=== PATIENT | female | born 1945 | race Caucasian/White ===

== ENCOUNTER → 2016-11-28 | Outpatient (CLI) | payer OTHER | LOC: MMPC 11:11 | PROVIDERS: ATTEND Nurse Practitioner Family | DX: Z01.419 Encounter for gynecological examination (general) (routine) without abnormal findings (principal); I10 Essential (primary) hypertension; E78.5 Hyperlipidemia, unspecified; J44.9 Chronic obstructive pulmonary disease, unspecified; K21.9 Gastro-esophageal reflux disease without esophagitis | CPT/HCPCS: G0101; G0438; G0463 ==

== ENCOUNTER 2017-01-17 10:25 | Emergency (ER) | payer OTHER ==
[2017-01-17] MEDS ORDERED: DILTIAZEM 5 MG/ML - 5 ML IV ONE ×2 (10:29→11:10)
[2017-01-17] MEDS ORDERED: DILTIAZEM HCL 125mg/25 ml vial IV ONE (10:42)
[2017-01-17] MEDS ORDERED: Sodium Chloride 0.9% 100 ML IV ONE (10:42)
[2017-01-17] MEDS ORDERED: NORMAL SALINE 10 ML SYRINGE FLUSH IVP PRN (10:51)
[2017-01-17 11:00] LABS: BASOPHILS # (AUTO) 0.11 10*3/UL; BASOPHILS % (AUTO) 0.9 % (0-1); HEMATOCRIT 41.6 % (37.0-47.0); HEMOGLOBIN 14.1 g/dL (12.0-16.0); IMM GRAN % (AUTO) 1.1 % (0-5); IMM GRAN# (AUTO) 0.14 10*3/UL; LYMPHOCYTES # (AUTO) 2.05 10*3/uL; LYMPHOCYTES % (AUTO) 16.8 % (10-50); MEAN CORPUSCULAR HEMOGLOBIN 29.4 PG (27-31); MEAN CORPUSCULAR HGB CONC 33.9 g/dL (33-37); MEAN PLATELET VOLUME 10.4 FL (7.4-12.2); MONOCYTES # (AUTO) 1.18 10*3/UL (0.3-0.8); MONOCYTES % (AUTO) 9.7 % (5-15); NEUTROPHILS % (AUTO) 70.5 % (50-80); RDW COEFFICIENT OF VARIATION 13.6 % (11.5-14.5)
[2017-01-17 11:07] LABS: PLATELET MORPHOLOGY COMMENT NORMAL MORPHOLOGY (NORM)
[2017-01-17 11:08] LABS: ASPARTATE AMINO TRANSFERASE 17 IU/L (8-39); BILIRUBIN,TOTAL 0.8 mg/dL (0.3-1.2); BLOOD UREA NITROGEN 16 mg/dL (7-22); CALCIUM 9.7 mg/dL (8.7-10.7); CHLORIDE 100 meq/L (98-112); CREATININE 0.8 mg/dL (0.50-1.20); EST GLOMERULAR FILTRATION > 60 (>60 ml/min/1.73m(2)); GLUCOSE 109 mg/dL (78-110); POTASSIUM 4.2 meq/L (3.8-5.2); SODIUM 138 meq/L (135-145); TOTAL PROTEIN 7.1 g/dL (6.1-8.0)
[2017-01-17] MEDS ORDERED: Diltiazem Drip 125 MG in Sodium Chloride 0.9% 100 ML IV ONE (11:10)
[2017-01-17] MEDS ORDERED: Sodium Chloride 0.9% 1,000 ML PRIMARY IV ONE (11:11)
--- NOTE | 2017-01-17 11:24 | EKG ---
[address] [address] Measurements Intervals [place] Rate: 153 P: SC: 0 QRS: 35 QRSD: 104 T: 9 QT: 281 QTc: 368 Interpretive Statements ATRIAL FLUTTER/TACHYCARDIA WITH RAPID VENTRICULAR RESPONSE INFERIOR MYOCARDIAL INFARCTION OF INDETERMINATE AGE ANTEROLATERAL MYOCARDIAL INFARCTION OF INDETERMINATE AGE Compared to ECG 04/03/2015 10:04:59 No significant changes Electronically Signed On 01-17-17 17:11:48 [facility] by Danilo Osorio [id number]
[2017-01-17 11:40] LABS: BILIRUBIN,URINE SMALL (NEG); CLARITY,URINE CLEAR (CLEAR); GLUCOSE, URINE (UA) NEGATIVE (NEG); LEUKOCYTE ESTERASE ,URINE NEGATIVE (NEG); NITRATE,URINE NEGATIVE (NEG); OCCULT BLOOD,URINE SMALL (NEG); PH,URINE 5.5 (5.0-8.5); PROTEIN,URINE 30 mg/dl (NEG); UROBILINOGEN,URINE 0.2 EU/dL (0.2)
[2017-01-17 11:49] LABS: URINE SAMPLE TYPE CLEAN CATCH URINE
[2017-01-17 11:51] LABS: RBC,URINE 0-1 /hpf; SQUAMOUS EPITHELIAL CELL,UR FEW; WBC,URINE 0
[2017-01-17] MEDS ORDERED: KETOROLAC 15 MG/1 ML VIAL IVP ONE (12:13)
[2017-01-17] MEDS ORDERED: KETOROLAC 15 MG/1 ML VIAL ONE (12:15)
[2017-01-17] MEDS ORDERED: Apixaban 5 MG TABLET PO ONE (12:19)
--- NOTE | 2017-01-17 12:21 | EKG ---
[address] [address] Measurements Intervals [place] Rate: 77 P: SD: 0 QRS: 45 QRSD: 110 T: 59 QT: 389 QTc: 421 Interpretive Statements ATRIAL FLUTTER/TACHYCARDIA INFERIOR MYOCARDIAL INFARCTION OF INDETERMINATE AGE ANTEROLATERAL MYOCARDIAL INFARCTION OF INDETERMINATE AGE Compared to ECG 01/17/2017 10:26:13 No significant changes Electronically Signed On 01-17-17 17:10:56 [facility] by Danilo Osorio [id number]
[2017-01-17 13:40] VITALS: RESP 21; TEMP 97.4
--- NOTE | 2017-01-17 13:41 | DI ---
CT ANGIOGRAM OF THE CHEST, 01/17/2017 11:49 AM : Clinical History: Shortness of breath. Elevated D-dimer test. Previous Exam: 09/13/2013. Scans are performed from the base of the neck to the lower lung bases following IV administration of 65 mL of Isovue 300. Proprietary automated bolus tracking software was used to verify the timing of t he injection. The base of the neck and thoracic inlet are normal. There are no abnormal axillary, supraclavicular, mediastinal, or hilar nodes. The patient is status post aortic and mitral valve replacement. Coronary artery calcifications are present in the right coronary artery, the LAD, and left circumflex artery. The pulmonary arteries are normal. There is no pulmonary arterial hypertension. There is no evidence of pulmonary embolism or pulmonary infarction. The lungs are clear and there are no pulmonary nodule s or masses. There is a low-density 10 mm lesion located in the anterior aspect of the left lobe of t he liver and a similar lesion located toward the inferior aspect of the right lobe. Both of these wer e present on the prior exam and have not changed and probably represent benign cysts. The adrenal gla nds and the visualized portions of the pancreas and spleen are normal. READIN. Normal CTA of the chest. There are no pulmonary emboli or pulmonary infarcts. 2. Status post aortic and mitral valve replacement.
[2017-01-17] MEDS ORDERED: ENOXAPARIN SODIUM 80 MG/0.8 ML SYRINGE SUBCUT ONE ×2 (14:15→18:10)
[2017-01-17] MEDS ORDERED: Warfarin 5 MG TAB PO ONE (14:16)
[2017-01-17] MEDS ORDERED: DILTIAZEM CD 240 MG CAP PO ONE (14:22)
--- NOTE | 2017-01-17 14:27 | EKG ---
[address] [address] Measurements Intervals [place] Rate: 80 P: CT: 0 QRS: 9 QRSD: 101 T: 44 QT: 396 QTc: 432 Interpretive Statements ATRIAL FLUTTER/TACHYCARDIA INFERIOR MYOCARDIAL INFARCTION OF INDETERMINATE AGE ANTEROLATERAL MYOCARDIAL INFARCTION, OF INDETERMINATE AGE Compared to ECG 01/17/2017 11:01:50 No significant changes Electronically Signed On 01-17-17 17:06:25 [facility] by Danilo Osorio [email or web address]
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
--- NOTE | 2017-01-17 21:28 | DI ---
PA /LATERAL CHEST X-RAY, 01/17/2017 10:51 AM : Clinical History: Atrial fibrillation. Cough. Previous Exam: 04/03/2010. There is no acute soft tissue or bony abnormality. There is cardiomegaly without CHF. The patient is status post aortic and mitral valve replacements. Both heart valves are of the type that are placed p ercutaneously and are expandable. The original prosthetic mitral valve annulus is still present. Lung s are clear. Mediastinal structures are normal. There are no pulmonary nodules. Readin. There is no acute infiltrate or effusion. 2. Cardiomegaly without CHF. The patient is status post aortic and mitral valve replacement.
[2017-01-18] MEDS ORDERED: DILTIAZEM CD 240 MG CAP PO SCH (09:00)
== END 2017-01-17 16:55 | disposition home or self-care (01) ==
LOC: ER 10:25
DX: I49.8 Other specified cardiac arrhythmias (principal); I48.92 Unspecified atrial flutter; R05 Cough; R06.02 Shortness of breath; R79.89 Other specified abnormal findings of blood chemistry; Z79.82 Long term (current) use of aspirin; Z95.2 Presence of prosthetic heart valve
CPT/HCPCS: 71020; 71275; 80053; 81001; 81003; 84443; 84484; 85025; 85379; 93005; 93010; 96365; 96366; 96375; 99284; J1650; J1885; J7030; J7050

== ENCOUNTER → 2017-01-17 | Outpatient (CLI) | payer OTHER ==
--- NOTE | 2017-01-17 10:01 | EKG ---
[address] [address] Measurements Intervals [place] Rate: 152 P: [place]: 0 QRS: 33 QRSD: 102 T: -35 QT: 282 QTc: 368 Interpretive Statements ATRIAL FLUTTER/TACHYCARDIA WITH RAPID VENTRICULAR RESPONSE INFERIOR MYOCARDIAL INFARCTION PROBABLY RECENT ANTEROLATERAL MYOCARDIAL INFARCTION OF INDETERMINATE AGE ACUTE MO Compared to ECG 04/03/2015 10:04:59 No significant changes Electronically Signed On 01-17-17 17:10:08 [facility] by Danilo Osorio [id number]
== END ==
LOC: MOB EKG 09:55
PROVIDERS: ATTEND Nurse Practitioner Family
DX: R00.0 Tachycardia, unspecified (principal); I48.92 Unspecified atrial flutter; I25.2 Old myocardial infarction
CPT/HCPCS: 93005; 93010

== ENCOUNTER → 2017-01-19 | Outpatient (CLI) | payer OTHER | LOC: MMPC 09:00 | PROVIDERS: ATTEND Nurse Practitioner Family | DX: I48.92 Unspecified atrial flutter (principal); J01.00 Acute maxillary sinusitis, unspecified; Z95.2 Presence of prosthetic heart valve | CPT/HCPCS: 99213; G0463 ==

== ENCOUNTER → 2017-01-20 | Outpatient (CLI) | payer OTHER | LOC: MMPC 09:00 | PROVIDERS: ATTEND Nurse Practitioner Family | DX: Z79.01 Long term (current) use of anticoagulants (principal); Z51.81 Encounter for therapeutic drug level monitoring; I48.91 Unspecified atrial fibrillation; I48.92 Unspecified atrial flutter; I35.0 Nonrheumatic aortic (valve) stenosis; Z95.2 Presence of prosthetic heart valve | CPT/HCPCS: 85610 ==

== ENCOUNTER 2017-01-22 18:37 | Emergency (ER) | payer OTHER ==
[2017-01-22] MEDS ORDERED: NORMAL SALINE 10 ML SYRINGE FLUSH IVP PRN (19:05)
[2017-01-22] MEDS ORDERED: Sodium Chloride 0.9% 1,000 ML PRIMARY IV ONE (19:05)
[2017-01-22] MEDS ORDERED: DILTIAZEM 5 MG/ML - 5 ML IV ONE (19:07)
[2017-01-22 19:09] LABS: BASOPHILS # (AUTO) 0.16 10*3/UL; BASOPHILS % (AUTO) 1.5 % (0-1); EOSINOPHILS % (AUTO) 2.4 % (0-8); HEMATOCRIT 39.8 % (37.0-47.0); HEMOGLOBIN 13.5 g/dL (12.0-16.0); IMM GRAN % (AUTO) 1.7 % (0-5); IMM GRAN# (AUTO) 0.18 10*3/UL; LYMPHOCYTES % (AUTO) 21.1 % (10-50); MEAN CORPUSCULAR HEMOGLOBIN 29.3 PG (27-31); MEAN CORPUSCULAR HGB CONC 33.9 g/dL (33-37); MEAN PLATELET VOLUME 9.6 FL (7.4-12.2); MONOCYTES # (AUTO) 0.81 10*3/UL (0.3-0.8); MONOCYTES % (AUTO) 7.8 % (5-15); NEUTROPHILS # (AUTO) 6.82 10*3/UL; NEUTROPHILS % (AUTO) 65.5 % (50-80); PLATELET MORPHOLOGY COMMENT NORMAL MORPHOLOGY (NORM); RDW COEFFICIENT OF VARIATION 13.7 % (11.5-14.5); WHITE BLOOD COUNT 10.42 10^3/uL (4.8-10.8)
--- NOTE | 2017-01-22 19:09 | EKG ---
[address] [address] Measurements Intervals [place] Rate: 144 P: [place]: 0 QRS: 82 QRSD: 101 T: -25 QT: 313 QTc: 396 Interpretive Statements ATRIAL FLUTTER/TACHYCARDIA WITH RAPID VENTRICULAR RESPONSE INFERIOR MYOCARDIAL INFARCTION [40+ ms Q WAVE AND/OR ST/T ABNORMALITY IN II/aVF], OF INDETERMINATE AGE ANTEROLATERAL MYOCARDIAL INFARCTION [40+ ms Q WAVE IN I/aVL/V3-V6], OF INDETERMINATE AGE INTERPRETATION BASED ON A DEFAULT AGE OF 40 YEARS Compared to ECG 01/17/2017 12:18:07 Rapid Response and rate Electronically Signed On 01-23-17 08:52:01 MDT by Wes Coronado MD [id number]
[2017-01-22 19:26] LABS: TROPONIN I < 0.012 ng/mL (< 0.040)
[2017-01-22 19:27] LABS: PROTHROMBIN TIME 23.4 secs (9.7-11.4)
[2017-01-22 19:33] LABS: BILIRUBIN,TOTAL 0.7 mg/dL (0.3-1.2); CALCIUM 9.4 mg/dL (8.7-10.7); POTASSIUM 3.5 meq/L (3.8-5.2); TOTAL PROTEIN 7.6 g/dL (6.1-8.0)
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
[2017-01-23 02:39] VITALS: TEMP 97.6
[2017-01-23 02:40] VITALS: RESP 16
--- NOTE | 2017-01-23 09:08 | DI ---
AP CHEST X-RAY, 01/22/2017 7:06 PM : Clinical History: Chest pain. Previous Exam: 01/17/2017. The patient is status post aortic and mitral valve replacements. There is cardiomegaly without CHF. T here is no acute infiltrate or effusion. There has been no interval change. Readin. There is no acute infiltrate or effusion. 2. Cardiomegaly without CHF.
== END 2017-01-22 20:10 | disposition home or self-care (01) ==
LOC: ER 18:37
DX: I48.91 Unspecified atrial fibrillation (principal); Z95.4 Presence of other heart-valve replacement
CPT/HCPCS: 71010; 80053; 82553; 84484; 85025; 85610; 85730; 93005; 93010; 96361; 96374; 99284; J7030

== ENCOUNTER → 2017-01-23 | Outpatient (CLI) | payer OTHER | LOC: MMPC 09:00 | PROVIDERS: ATTEND Nurse Practitioner Family | DX: Z79.01 Long term (current) use of anticoagulants (principal); Z51.81 Encounter for therapeutic drug level monitoring; I48.91 Unspecified atrial fibrillation; I48.92 Unspecified atrial flutter; I35.0 Nonrheumatic aortic (valve) stenosis; Z95.2 Presence of prosthetic heart valve | CPT/HCPCS: 85610 ==

== ENCOUNTER → 2017-01-30 | Outpatient (CLI) | payer OTHER | LOC: MMPC 09:00 | PROVIDERS: ATTEND Nurse Practitioner Family | DX: Z79.01 Long term (current) use of anticoagulants (principal); Z51.81 Encounter for therapeutic drug level monitoring; I48.91 Unspecified atrial fibrillation; I48.92 Unspecified atrial flutter; I35.0 Nonrheumatic aortic (valve) stenosis; Z95.2 Presence of prosthetic heart valve | CPT/HCPCS: 85610 ==

== ENCOUNTER → 2017-02-13 | Outpatient (CLI) | payer OTHER | LOC: MMPC 09:00 | PROVIDERS: ATTEND Nurse Practitioner Family | DX: Z79.01 Long term (current) use of anticoagulants (principal); Z51.81 Encounter for therapeutic drug level monitoring; I48.91 Unspecified atrial fibrillation; I48.92 Unspecified atrial flutter; Z95.2 Presence of prosthetic heart valve | CPT/HCPCS: 85610 ==

== ENCOUNTER → 2017-02-27 | Outpatient (CLI) | payer OTHER | LOC: MMPC 09:00 | PROVIDERS: ATTEND Nurse Practitioner Family | DX: Z79.01 Long term (current) use of anticoagulants (principal); Z51.81 Encounter for therapeutic drug level monitoring; I48.91 Unspecified atrial fibrillation; I48.92 Unspecified atrial flutter; Z95.2 Presence of prosthetic heart valve | CPT/HCPCS: 85610 ==

== ENCOUNTER → 2017-03-09 | Outpatient (CLI) | payer OTHER ==
--- NOTE | 2017-03-09 12:10 | DI ---
RIGHT SHOULDER, 03/09/2017 11:35 AM: Clinical History: Right shoulder pain. Previous Exam: 12/14/2008. 4 views are submitted. There is no acute soft tissue, osseous, or joint abnormality. The patient has developed calcification in the region of the bicipital groove consistent with calcific tendinitis mos t likely of the supraspinatus tendon. The visualized portions of the right lung in the right apex are normal. The patient is status post CABG and probably both aortic and mitral valve replacement via th e percutaneous route. Reading: Calcific tendinitis. The shoulder joint is otherwise normal.
== END ==
LOC: ORTHO 11:50
PROVIDERS: ATTEND Physician Assistant
DX: M25.511 Pain in right shoulder (principal); M75.41 Impingement syndrome of right shoulder; M75.01 Adhesive capsulitis of right shoulder
CPT/HCPCS: 73030

== ENCOUNTER → 2017-03-27 | Outpatient (CLI) | payer OTHER | LOC: MMPC 09:00 | PROVIDERS: ATTEND Nurse Practitioner Family | DX: Z79.01 Long term (current) use of anticoagulants (principal); Z51.81 Encounter for therapeutic drug level monitoring; I48.91 Unspecified atrial fibrillation; I48.92 Unspecified atrial flutter; I35.0 Nonrheumatic aortic (valve) stenosis; Z95.2 Presence of prosthetic heart valve | CPT/HCPCS: 85610 ==

== ENCOUNTER → 2017-04-04 | Outpatient (CLI) | payer OTHER | LOC: MMPC 10:00 | PROVIDERS: ATTEND Physician Assistant | DX: M75.41 Impingement syndrome of right shoulder (principal) | CPT/HCPCS: 99212; G0463 ==

== ENCOUNTER → 2017-04-07 | Outpatient (CLI) | payer OTHER | LOC: MMPC 09:00 | DX: S40.861A Insect bite (nonvenomous) of right upper arm, initial encounter (principal); W57.XXXA Bitten or stung by nonvenomous insect and other nonvenomous arthropods, initial encounter | CPT/HCPCS: 99213; G0463 ==

== ENCOUNTER → 2017-04-24 | Outpatient (CLI) | payer OTHER | LOC: MMPC 09:00 | PROVIDERS: ATTEND Nurse Practitioner Family | DX: Z79.01 Long term (current) use of anticoagulants (principal); Z51.81 Encounter for therapeutic drug level monitoring; I48.91 Unspecified atrial fibrillation; I48.92 Unspecified atrial flutter; Z95.2 Presence of prosthetic heart valve | CPT/HCPCS: 85610 ==

== ENCOUNTER → 2017-05-22 | Outpatient (CLI) | payer OTHER | LOC: MMPC 09:00 | PROVIDERS: ATTEND Nurse Practitioner Family | DX: Z79.01 Long term (current) use of anticoagulants (principal); Z51.81 Encounter for therapeutic drug level monitoring; I48.91 Unspecified atrial fibrillation; I48.92 Unspecified atrial flutter; Z95.2 Presence of prosthetic heart valve | CPT/HCPCS: 85610 ==

== ENCOUNTER → 2017-05-26 | Outpatient (CLI) | payer OTHER ==
[2017-05-26 12:39] LABS: CALCIUM 9.2 mg/dL (8.7-10.7); CHOL/HDL RATIO 1.98 RATIO (0-4.0); LDL CHOLESTEROL,CALCULATED 38.8 mg/dL
== END ==
LOC: LAB 12:09
PROVIDERS: ATTEND Nurse Practitioner Family
DX: I10 Essential (primary) hypertension (principal); E78.5 Hyperlipidemia, unspecified
CPT/HCPCS: 36415; 80048; 82247; 82465; 82550; 82977; 83718; 84075; 84450; 84460; 84478

== ENCOUNTER → 2017-05-29 | Outpatient (CLI) | payer OTHER | LOC: MMPC 09:00 | PROVIDERS: ATTEND Nurse Practitioner Family | DX: I10 Essential (primary) hypertension (principal); E78.5 Hyperlipidemia, unspecified; J44.9 Chronic obstructive pulmonary disease, unspecified; I48.92 Unspecified atrial flutter; K21.9 Gastro-esophageal reflux disease without esophagitis; G47.09 Other insomnia | CPT/HCPCS: 99214; G0463 ==